=== PATIENT | female | born 1980 | race Caucasian/White ===

== ENCOUNTER → 2024-01-15 15:51 | Outpatient (REF) | payer BC, SELFPAY | LOC: WDC 15:51 | PROVIDERS: ATTENDING PHYSICIAN Internal Medicine Hematology & Oncology; FAMILY PHYSICIAN Family Medicine | DX: Z12.31 Encounter for screening mammogram for malignant neoplasm of breast (principal) | CPT/HCPCS: 77063; 77067 ==

== ENCOUNTER → 2024-05-25 11:39 | Outpatient (REF) | payer BC, SELFPAY | LOC: RAD 11:39 | PROVIDERS: ATTENDING PHYSICIAN Family Medicine | DX: R94.5 Abnormal results of liver function studies (principal) | CPT/HCPCS: 74170; Q9967 ==

== ENCOUNTER 2024-11-13 06:22 | Day surgery (SDC) | payer BC, SELFPAY | END 2024-11-13 08:38 | disposition home or self-care (01) | LOC: GI 06:22 | PROVIDERS: ATTENDING PHYSICIAN Internal Medicine Gastroenterology | DX: Z12.11 Encounter for screening for malignant neoplasm of colon (principal); K64.8 Other hemorrhoids; K57.30 Diverticulosis of large intestine without perforation or abscess without bleeding | CPT/HCPCS: G0121 ==

== ENCOUNTER → 2025-01-19 16:44 | Outpatient (REF) | payer BC, SELFPAY | LOC: WDC 16:44 | PROVIDERS: ATTENDING PHYSICIAN Internal Medicine Hematology & Oncology; FAMILY PHYSICIAN Internal Medicine Hematology & Oncology | DX: Z12.31 Encounter for screening mammogram for malignant neoplasm of breast (principal) | CPT/HCPCS: 77063; 77067 ==

== ENCOUNTER → 2025-03-02 16:26 | Outpatient (REF) | payer BC, SELFPAY | LOC: RAD 16:26 | PROVIDERS: ATTENDING PHYSICIAN Obstetrics & Gynecology; FAMILY PHYSICIAN Family Medicine | DX: N95.0 Postmenopausal bleeding (principal) | CPT/HCPCS: 76830; 76856 ==

== ENCOUNTER 2025-04-28 06:17 | Day surgery (SDC) | payer BC, SELFPAY ==
[2025-04-05 13:37] VITALS: BMI 39.5
[2025-04-05 14:00] LABS: Hematocrit 36.3 % (37.0-47.0); Hemoglobin 12.3 g/dL (12.0-16.0); Mean Corp Hgb Conc. 33.9 g/dL (33.0-37.0); Mean Corpuscular Volume 85.4 fL (81.0-99.0); Nucleated Red Blood Cells % 0 %; Platelet Count 312 10^3/uL (130-400); Red Cell Dist. Width 12.5 % (11.5-14.5)
[2025-04-05 14:11] LABS: HCG, Serum Qualitative Screen Negative
--- NOTE | 2025-04-06 14:20 | PTCARENOTE ---
Abnormal ECG done 04/05/[address] Paredes, no further intervention requested.
[2025-04-28 06:47] VITALS: BMI 39.5
[2025-04-28 06:50] VITALS: BP 117/75
[2025-04-28] MEDS: TRANSDERM-SCOP 1 PATCH TRANSDERM (07:04)
[2025-04-28] MEDS: TYLENOL 1000 MG PO (07:04)
[2025-04-28] MEDS: NORMOSOL-R/PLASMALYTE-A 1000 IV (07:04)
[2025-04-28 08:33] VITALS: BP 112/72
[2025-04-28 08:45] VITALS: BP 126/54
[2025-04-28 09:06] VITALS: BP 112/69
--- NOTE | 2025-04-28 18:12 | OR.RPT ---
Operative Report
Operative Report
Procedure date: 04/28/2025
Preop diagnosis:
- Thickened endometrium on ultrasound
Postop diagnosis
- Same
Procedure
- Hysteroscopy, dilation and curettage with MyoSure
Surgeon: Speedy
Anesthesia: MAC, Dr. Newman
EBL 10cc
Complications: none
Findings
- Normal appearing external genitalia
- Cervix without lesions or masses
- Bimanual exam normal sized with anteverted uterus
- Hysteroscopic evaluation revealed polypoid like tissue in endometrium, endometrium thickened, both tubal ostia visualized
Pathology: endometrial curettings
Indication:
Patient is a 44yo G0 who presented for scheduled Hysteroscopy D&C with MyoSure. She has a history of breast cancer and is on Tamoxifen. She had not had a period since 01/2024 and then in 02/2025, she had very heavy bleeding and cramping where she was
soaking through pads. She had blood work with her Oncologist that said she is not in menopause. She had a pelvic ultrasound that showed a the endometrial lining was 17mm and was inhomogenous with small cysts. Hysteroscopy D&C was recommended. Risks,
benefits and alternatives reviewed and all questions answered prior to proceeding. Consents were previously signed.
Procedure:
Patient was taken to the operating room and placed under MAC. She was placed in the dorsal lithotomy position with Wilbert type stirrups. She was prepped and draped in the normal sterile fashion. Bimanual exam revealed the aforementioned findings. The
bladder was drained with a straight catheter yielding 100cc of clear urine. A Burgess retractor was placed in the anterior portion of the vagina and a Burgess retractor in the posterior aspect of the vagina revealing good visualization the cervix. The
anterior lip of the cervix was grasped with a single tooth tenaculum. The uterus was sounded to 9cm. The cervix was sequentially dilated to accommodate the MyoSure hysteroscope. The hysteroscope was advanced under direct visualization. Hysteroscopic
evaluation revealed the aforementioned findings. Some of the polypoid tissue was removed using the MyoSure Reach resecting device. The hysteroscope was removed. A size 0 curette was introduced into the cervix. The uterus was curetted in a clockwise
fashion until uterine cry was felt in all quadrants. Endometrial curettings were sent to pathology for evaluation. The tenaculum was removed from the cervix and good hemostasis was noted. All instruments were removed from the vagina.
The patient tolerated the procedure well. All sponge and instrument counts were correct x2. She was taken to PACU in stable condition.
== END 2025-04-28 09:30 | disposition home or self-care (01) ==
LOC: SDS 06:17
PROVIDERS: ATTENDING PHYSICIAN Student in an Organized Health Care Education/Training Program; FAMILY PHYSICIAN Family Medicine; OTHER PHYSICIAN Internal Medicine Hematology & Oncology
DX: N84.0 Polyp of corpus uteri (principal); N93.9 Abnormal uterine and vaginal bleeding, unspecified; N85.4 Malposition of uterus; R93.89 Abnormal findings on diagnostic imaging of other specified body structures; Z85.3 Personal history of malignant neoplasm of breast
CPT/HCPCS: 58558; 36415; 84703; 85025; 86850; 86900; 86901; 88305; 93005

== ENCOUNTER → 2025-10-04 09:01 | Outpatient (REF) | payer BC, SELFPAY | LOC: HWRAD 09:01 | PROVIDERS: ATTENDING PHYSICIAN Internal Medicine Hematology & Oncology; FAMILY PHYSICIAN Family Medicine | DX: C50.112 Malignant neoplasm of central portion of left female breast (principal) | CPT/HCPCS: 77080 ==

== ENCOUNTER → 2025-10-05 13:59 | Outpatient (REF) | payer BC, SELFPAY | LOC: MRI 13:59 | PROVIDERS: ATTENDING PHYSICIAN Internal Medicine Gastroenterology; FAMILY PHYSICIAN Family Medicine | DX: K76.0 Fatty (change of) liver, not elsewhere classified (principal) | CPT/HCPCS: 74183; 76391; A9575 ==